=== PATIENT | male | born 1960 | race American Indian/Alaskan Native ===

== ENCOUNTER 2018-03-26 09:58 | Outpatient (CLI) | payer MEDICAID ==
[~2018-03-26 09:58] MED LIST: AMIT-189 PO; ARIP5TAB4 PO; CARI350T PO; CEPH-357 PO; CLON-527 PO; ESOM40CA PO; LAMO25TA41 PO; LISI40TA4 PO; LURA40TA PO; MIN5C PO
== END 2018-03-26 23:59 | disposition home or self-care (01) ==
LOC: RAD 09:58
DX: R55 Syncope and collapse (principal); I10 Essential (primary) hypertension; Z87.891 Personal history of nicotine dependence
CPT/HCPCS: 95819

== ENCOUNTER 2022-12-10 22:03 | Emergency (ER) | payer MEDICAID ==
[~2022-12-10] VITALS: Ht 188 cm; Wt 100.0 kg
[~2022-12-10 22:03] MED LIST changes: -AMIT-189 PO; +AMIT-286 PO; +ARIP5TAB14 PO; -ARIP5TAB4 PO; +LISI40TA13 PO; -LISI40TA4 PO
[2022-12-10 22:24] VITALS: BP 158/94; PULSE 103; RESP 18; TEMP 98.5; O2SAT 96
== END 2022-12-10 22:56 ==
LOC: ER 22:03
DX: V87.7XXA Person injured in collision between other specified motor vehicles (traffic), initial encounter; Y93.89 Activity, other specified; Y92.89 Other specified places as the place of occurrence of the external cause; Y99.8 Other external cause status
CPT/HCPCS: 99283